=== PATIENT | female | born 1930 | race Caucasian/White ===

== ENCOUNTER 2017-02-13 04:39 | Outpatient (CLI) | payer MEDICARE | END 2017-02-13 04:40 | disposition home or self-care (01) | LOC: EMS 04:39 | PROVIDERS: ATTEND Surgery | DX: M54.2 Cervicalgia (principal) ==

== ENCOUNTER 2018-02-13 05:12 | Outpatient (CLI) | payer MEDICARE | END 2018-02-13 05:13 | disposition EMS.NT | LOC: EMS 05:12 | PROVIDERS: ATTEND Surgery | DX: R68.89 Other general symptoms and signs (principal); Z59.2 Discord with neighbors, lodgers and landlord ==

== ENCOUNTER 2019-10-29 01:47 | Outpatient (CLI) | payer MEDICARE | END 2019-10-29 01:48 | disposition EMS.NT | LOC: EMS 01:47 | PROVIDERS: ATTEND Surgery | DX: R45.82 Worries (principal); Z73.3 Stress, not elsewhere classified ==

== ENCOUNTER 2019-11-15 08:00 | Outpatient (CLI) | payer MEDICARE ==
[2019-11-15 18:24] LABS: BASOPHILS % (AUTO) 0.9 %; EOSINOPHILS # (AUTO) 0.1 10^3/uL (0.0-0.7); EOSINOPHILS % (AUTO) 1.7 %; HGB - HEMOGLOBIN 12.4 g/dL (12.0-16.0); LYMPHOCYTES # (AUTO) 1.4 10^3/uL (1.5-3.5); LYMPHOCYTES % (AUTO) 31.2 %; MEAN CORPUSCULAR HGB CONC 32.7 g/dL (32.0-36.0); MEAN CORPUSCULAR VOLUME 94.8 fL (81.0-99.0); MEAN PLATELET VOLUME 10.5 fL (7.9-10.8); MONOCYTES # (AUTO) 0.4 10^3/uL (0.0-1.0); MONOCYTES % (AUTO) 7.9 %; NEUTROPHILS # (AUTO) 2.7 10^3/uL (1.5-6.6); NEUTROPHILS % (AUTO) 58.1 %; PLT - PLATELET COUNT 212 10^3/uL (130-450); RED CELL DISTRIBUTION WIDTH 12.2 % (12.0-15.0); WHITE BLOOD COUNT 4.6 x10^3/uL (4.8-10.8)
[2019-11-15 19:02] LABS: ALBUMIN 4.2 g/dL (3.2-5.5); ALBUMIN/GLOBULIN RATIO 1.3 (1.0-2.2); BILIRUBIN,TOTAL 1.3 mg/dL (0.2-1.0); CALCIUM 9.7 mg/dL (8.5-10.3); CREATININE 0.9 mg/dL (0.4-1.0); TOTAL PROTEIN 7.4 g/dL (6.7-8.2)
[2019-11-15 19:16] LABS: THYROID STIMULATING HORMONE 0.76 uIU/mL (0.34-5.60)
[2019-11-15 19:18] LABS: FREE T3 2.36 pg/mL (2.5-3.9)
[2019-11-15 19:19] LABS: FREE T4 (FREE THYROXINE) 0.91 ng/dL (0.58-1.64)
== END 2019-11-15 23:59 | disposition home or self-care (01) ==
LOC: LAB.WCP 08:00
PROVIDERS: ATTEND Family Medicine
DX: E03.9 Hypothyroidism, unspecified (principal); R42 Dizziness and giddiness; I60.9 Nontraumatic subarachnoid hemorrhage, unspecified; M54.2 Cervicalgia; M79.7 Fibromyalgia; M54.30 Sciatica, unspecified side
CPT/HCPCS: 36415; 80053; 84439; 84443; 84481; 85025

== ENCOUNTER 2020-06-13 22:15 | Outpatient (CLI) | payer MEDICARE | END 2020-06-13 22:16 | disposition EMS.NT | LOC: EMS 22:15 | DX: R04.0 Epistaxis (principal) ==